=== PATIENT | male | born 1990 | race Caucasian/White ===

== ENCOUNTER 2016-07-28 16:03 | Emergency (ER) | payer MEDICARE ==
[~2016-07-28 16:03] MED LIST: ALLEGRA ALLERG180 MG PO; TAMIFLU75 MG PO; ZOFRAN4 MG PO
== END 2016-07-28 20:25 | disposition critical access hospital (66) ==
LOC: ER 16:03
DX: E10.10 Type 1 diabetes mellitus with ketoacidosis without coma (principal); Z88.1 Allergy status to other antibiotic agents
CPT/HCPCS: 36415; 80307; 87502; 96361; 96365; 96366; 96367; 96375; 96376; J0696; J2550; J2765

== ENCOUNTER 2016-07-28 16:03 | Inpatient (IN) | payer MEDICARE ==
--- NOTE | 2016-07-30 14:08 | NUR ---
1100: PT INSTRUCTED TO INSULIN PUMP PER PHYSCIAN. PT VERB UNDERSTANDING
--- NOTE | 2016-07-31 09:04 | NUR ---
0830: PT CHANGED OUT INFUSION SITE, TUBING AND CARTRIDGE FOR INSULIN PUMP. PLACED ON RIGHT THIGH WITH THE SETTINGS OF: 1 UNIT PER 10 CARBS FOR MEALS; BASAL RATE FOR 4AM TO 12 AM IS 1.3 UNITS/HR AND THEN 12 AM TO 4 AM IS 1.25 UNITS/HOUR, PER PHYSCIAN'S ORDERS. PT INDEPENDENT OF MANAGING INSULIN PUMP. WILL CONTINUE TO MONITOR.
--- NOTE | 2016-08-02 13:47 | NUR ---
PATIENT EXITED ICU AMBULATORY ACCOMPANIED BY GRANDMOTHER IN NO ACUTE DISTRESS ON HIS WAY HOME. PATIENT HAS ALL HIS DISCHARGE INSTRUCTIONS INCLUDING HIS HOME MEDICATION LIST. PATIENT VERY APPRECIATIVE FOR THE CARE THAT HE RECEIVED.
== END 2016-08-02 13:47 | disposition home or self-care (01) | DRG 639 ==
LOC: ER 16:03 → ICU 20:25
PROVIDERS: ADMIT Internal Medicine
DX: E10.10 Type 1 diabetes mellitus with ketoacidosis without coma (principal); Z79.4 Long term (current) use of insulin; Z96.41 Presence of insulin pump (external) (internal); L25.9 Unspecified contact dermatitis, unspecified cause; Z79.899 Other long term (current) drug therapy; Z84.89 Family history of other specified conditions; Z83.3 Family history of diabetes mellitus; D72.829 Elevated white blood cell count, unspecified; E87.8 Other disorders of electrolyte and fluid balance, not elsewhere classified
CPT/HCPCS: 36415; 80307; 87502; J0696; J1650; J2550; J2765